=== PATIENT | female | born 1960 | race African-American/Black ===

== ENCOUNTER 2016-11-19 01:54 | Emergency (ER) | payer MEDICARE, OTHER ==
[2016-11-19 02:06] VITALS: BP 151/96
[2016-11-19] MEDS ORDERED: ACETAMINOPHEN 325 MG TABLET PO ONE (02:41)
[2016-11-19] MEDS ORDERED: ONDANSETRON 4 MG TAB.RAPDIS PO ONE (02:41)
--- NOTE | 2016-11-19 02:41 | ER Document Report ---
ED General - General Chief Complaint: Other Stated Complaint: HEADACHE,NAUSEA Time Seen by Provider: 11/19/16 02:37 Notes: Patient is a 56-year-old female comes emergency department for chief complaints of a discomfort in her lower abdomen/pelvis and a sensation that her "uterus is dropping". She states that she has felt this several times and now she has become concerned. She denies dysuria, nausea or vomiting, fever, flank pain, or any other symptoms. TRAVEL OUTSIDE OF THE [place] IN LAST 30 DAYS: No - Related Data Allergies/Adverse Reactions: No Known Allergies Allergy (Verified 12/19/15 21:17) Past Medical History - General Information source: Patient - Social History Smoking Status: Never Smoker Frequency of alcohol use: None Drug Abuse: None Lives with: Alone Family History: Reviewed & Not Pertinent Patient has suicidal ideation: No Patient has homicidal ideation: No - Past Medical History Cardiac Medical History: Reports: Hx Hypertension Renal/ Medical History: Denies: Hx Peritoneal Dialysis Surgical Hx: Negative - Immunizations Hx Diphtheria, Pertussis, Tetanus Vaccination: Yes Review of Systems - Review of Systems Constitutional: No symptoms reported EENT: No symptoms reported Cardiovascular: No symptoms reported Respiratory: No symptoms reported Gastrointestinal: No symptoms reported Genitourinary: No symptoms reported Female Genitourinary: See HPI Musculoskeletal: No symptoms reported Skin: No symptoms reported Hematologic/Lymphatic: No symptoms reported Neurological/Psychological: No symptoms reported Physical Exam - Vital signs Vitals: Temp Pulse Resp BP Pulse Ox 98.1 F 85 16 151/96 H 99 11/19/16 02:05 11/19/16 02:05 11/19/16 02:05 11/19/16 02:05 11/19/16 02:05 Interpretation: Normal - General General appearance: Appears well, Alert In distress: None - HEENT Head: Normocephalic, Atraumatic Eyes: Normal Pupils: PERRL - Respiratory Respiratory status: No respiratory distress Chest status: Nontender Breath sounds: Normal. No: Decreased air movement, Wheezing Chest palpation: Normal - Cardiovascular Rhythm: Regular Heart sounds: Normal auscultation Murmur: No - Abdominal Inspection: Normal Distension: No distension Bowel sounds: Normal Tenderness: Nontender. No: Tender, Guarding Organomegaly: No organomegaly - Back Back: Normal, Nontender - Extremities General upper extremity: Normal inspection, Nontender, Normal color, Normal ROM , Normal temperature General lower extremity: Normal inspection, Nontender, Normal color, Normal ROM , Normal temperature, Normal weight bearing. No: Lula's sign - Neurological Neuro grossly intact: Yes Cognition: Normal Orientation: AAOx4 [place] Coma Scale Eye Opening: Spontaneous [place] Coma Scale Verbal: Oriented Aniyah Coma Scale Motor: Obeys Commands [place] Coma Scale Total: 15 Speech: Normal Motor strength normal: LUE, RUE, LLE, RLE Sensory: Normal - Psychological Associated symptoms: Normal mood. No: Normal affect - Flat affect - Skin Skin Temperature: Warm Skin Moisture: Dry Skin Color: Normal Course - Re-evaluation Re-evalutation: Patient is very eccentric and strange behaving but she is oriented, she answers questions appropriately, and she is not in any distress. Patient refuses a pelvic examination. She is in full agreement with an ultrasound and she really wants this. Abdomen exam is soft and nontender. Vital signs unremarkable. Patient is generally well-appearing. Ultrasound with no acute abnormalities, urinalysis unremarkable. I discussed this with patient, she is actually very relieved, states she follow-up with her primary care provider which she does have, she states she is glad she does not need to follow-up with [facility]. I did discuss return precautions, patient states understanding and agreement. - Vital Signs Vital signs: Temp Pulse Resp BP Pulse Ox 98.1 F 85 16 151/96 H 99 11/19/16 02:05 11/19/16 02:05 11/19/16 02:05 11/19/16 02:05 11/19/16 02:05 - Laboratory Laboratory results interpreted by me: 11/19/16 02:52 Ur Leukocyte Esterase TRACE H Discharge - Discharge Clinical Impression: Abdominal/pelvic symptom Condition: Stable Disposition: HOME, SELF-CARE Additional Instructions: Your urinalysis and ultrasound do not show any abnormalities. Your uterus, bladder, and cervix are normal by ultrasound. Follow up with the primary care referral for additional evaluation and management. Return to the ED for any concerning symptoms- vomiting, fever, pain, or any other concerning symptoms. Referrals: COLIN QUIÑONEZ MD [ACTIVE STAFF] - Follow up as needed
[2016-11-19 03:31] LABS: APPEARANCE,URINE CLEAR; BILIRUBIN,URINE NEGATIVE (NEGATIVE); GLUCOSE, URINE NEGATIVE (NEGATIVE); KETONES,URINE NEGATIVE (NEGATIVE); LEUKOCYTE ESTERASE,URINE TRACE (NEGATIVE); NITRITE,URINE NEGATIVE (NEGATIVE); PROTEIN,URINE NEGATIVE (NEGATIVE); URINE SPECIFIC GRAVITY 1.009; UROBILINOGEN,URINE NEGATIVE mg/dL (<2.0)
--- NOTE | 2016-11-19 05:12 | RADIOLOGY REPORT (SQ) ---
EXAM DESCRIPTION: U/S NON-OB PELVIS LTD W/O DOP CLINICAL HISTORY: 56 years, Female, pelvic pain COMPARISON: None. TECHNIQUE: Transabdominal ultrasound technique. Grayscale technique was utilized to perform this examination. LIMITATIONS: None. FINDINGS: Uterus appears grossly normal and measures 7.4 cm x 3.0 cm in greatest sagittal dimension and 4.0 cm in greatest transverse dimension. Cervix measures 2.9 cm in greatest sagittal dimension. Greatest total sagittal endometrial thickness equals 2.4 mm. Neither ovary is visualized. The fluid-filled urinary bladder appears normal. No free pelvic fluid. IMPRESSION: 1. Uterus and endometrium appear grossly normal. Neither ovary is visualized. 2. Fluid-filled urinary bladder appears normal. 3. No free pelvic fluid. 2011 [employer]- All Rights Reserved
== END 2016-11-19 05:31 | disposition home or self-care (01) ==
LOC: ER 01:54
DX: R10.2 Pelvic and perineal pain (principal); R10.9 Unspecified abdominal pain; R51 Headache; R11.0 Nausea
CPT/HCPCS: 76857; 81001; 99284

== ENCOUNTER 2017-08-24 13:49 | Emergency (ER) | payer MEDICARE, OTHER ==
[2017-08-18] MEDS: BESIFLOXACIN HCL 0.6% OPH SUSP 5 ML BOTTLE OS SCH (11:10)
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
[2017-08-24 15:03] LABS: ABSOLUTE EOSINOPHILS # (AUTO) 0.1 10^3/uL (0.0-0.6); ABSOLUTE LYMPHOCYTES (AUTO) 1.8 10^3/uL (0.5-4.7); ABSOLUTE MONOCYTES (AUTO) 0.7 10^3/uL (0.1-1.4); ABSOLUTE NEUT (AUTO) 3.4 10^3/uL (1.7-8.2); BASOPHILS % (AUTO) 0.6 % (0-2); EOSINOPHILS % (AUTO) 1.5 % (0-6); HEMATOCRIT 37.8 % (36.0-47.0); HEMOGLOBIN 12.8 g/dL (12.0-15.5); LYMPHOCYTES % (AUTO) 29.1 % (13-45); MEAN CORPUSCULAR HEMOGLOBIN 31.7 pg (27.0-33.4); MEAN CORPUSCULAR HGB CONC 33.9 g/dL (32.0-36.0); MEAN CORPUSCULAR VOLUME 93 fl (80-97); MONOCYTES % (AUTO) 11.5 % (3-13); PLATELET COUNT 150 10^3/uL (150-450); RED BLOOD COUNT 4.05 10^6/uL (3.72-5.28); RED CELL DISTRIBUTION WIDTH 13.4 % (11.5-14.0); SEGMENTED NEUTROPHILS % (AUTO) 57.3 % (42-78); TOTAL CELLS COUNTED % (AUTO) 100 %
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
[2017-08-24 15:56] LABS: ALANINE AMINOTRANSFERASE 32 U/L (9-52); ALBUMIN 4.1 g/dL (3.5-5.0); ALKALINE PHOSPHATASE 46 U/L (38-126); ANION GAP 12 (5-19); ASPARTATE AMINO TRANSFERASE 27 U/L (14-36); BILIRUBIN,DIRECT 0.3 mg/dL (0.0-0.4); BILIRUBIN,TOTAL 0.3 mg/dL (0.2-1.3); BLOOD UREA NITROGEN 15 mg/dL (7-20); CALCIUM 9.4 mg/dL (8.4-10.2); CARBON DIOXIDE 29 mmol/L (22-30); CHLORIDE 106 mmol/L (98-107); GLUCOSE 94 mg/dL (75-110); POTASSIUM 3.9 mmol/L (3.6-5.0); SODIUM 147.4 mmol/L (137-145); TOTAL PROTEIN 7.7 g/dL (6.3-8.2)
[2017-08-24 15:59] LABS: ACETAMINOPHEN < 10 ug/mL (10-30); ALCOHOL < 10 mg/dL (NONE DETECTED); SALICYLATE < 1.0 mg/dL (2.0-20.0)
[2017-08-24 16:09] LABS: APPEARANCE,URINE CLEAR; BILIRUBIN,URINE NEGATIVE (NEGATIVE); COLOR,URINE YELLOW; GLUCOSE, URINE NEGATIVE (NEGATIVE); KETONES,URINE NEGATIVE (NEGATIVE); LEUKOCYTE ESTERASE,URINE TRACE (NEGATIVE); NITRITE,URINE NEGATIVE (NEGATIVE); PROTEIN,URINE NEGATIVE (NEGATIVE); URINE SPECIFIC GRAVITY 1.015; UROBILINOGEN,URINE NEGATIVE mg/dL (<2.0)
[2017-08-24 16:25] LABS: URINE AMPHETAMINES SCREEN NEGATIVE; URINE BARBITURATES SCREEN NEGATIVE; URINE BENZODIAZEPINES SCREEN NEGATIVE; URINE COCAINE SCREEN NEGATIVE; URINE MARIJUANA (THC) SCREEN NEGATIVE; URINE METHADONE SCREEN NEGATIVE; URINE PHENCYCLIDINE SCREEN NEGATIVE
[2017-08-24] MEDS ORDERED: CHLORPROMAZINE HCL 50 MG TABLET PO PRN (17:24)
[2017-08-24] MEDS: PREDNISOLONE ACETATE 1% OPH SUSP 5 ML OS SCH (18:42)
[2017-08-24] MEDS: BESIFLOXACIN HCL 0.6% OPH SUSP 5 ML BOTTLE OS SCH (18:43)
[2017-08-24] MEDS ORDERED: BENZTROPINE MESYLATE INJ 2 MG/2 ML AMPULE IM ONE (18:46)
[2017-08-24] MEDS ORDERED: CHLORPROMAZINE HCL INJ 25 MG/1 ML AMPULE IM ONE (18:50)
[2017-08-24] MEDS: BENZTROPINE MESYLATE 1 MG TABLET PO SCH (18:57)
--- NOTE | 2017-08-24 20:41 | EKG REPORT ---
SEVERITY:- NORMAL ECG - SINUS RHYTHM : Confirmed by: Betty Colon MD 24-Aug-2017 20:40:45
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
[2017-08-25] MEDS: BESIFLOXACIN HCL 0.6% OPH SUSP 5 ML BOTTLE OS SCH ×3 (01:35→18:15)
[2017-08-25] MEDS: PREDNISOLONE ACETATE 1% OPH SUSP 5 ML OS SCH ×4 (01:36→18:15)
[2017-08-25] MEDS: ATROPINE SULFATE 1% OPH SOLN 5 ML BOTTLE OS SCH (11:05)
[2017-08-25] MEDS: CHLORPROMAZINE HCL 50 MG TABLET PO SCH (14:45)
--- NOTE | 2017-08-25 16:20 | ER Document Report ---
Doctor's Note Notes: 08/25/17 16:18 The patient was given Thorazine earlier. It was initially ordered as as needed and was never given. It is now been long enough to provide some benefit. She is sitting up eating her lunch/dinner and is quite pleasant. Her left eye is dilated as it should be. She will remain on IVC papers and reevaluated tomorrow after she has had a full day of Thorazine to bring her bipolar type symptoms under control.
[2017-08-25] MEDS: BENZTROPINE MESYLATE 1 MG TABLET PO SCH (18:18)
[2017-08-26] MEDS: BENZTROPINE MESYLATE 1 MG TABLET PO SCH ×2 (06:50→21:00)
[2017-08-26] MEDS: CHLORPROMAZINE HCL 50 MG TABLET PO SCH (06:51)
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
[2017-08-26] MEDS: BESIFLOXACIN HCL 0.6% OPH SUSP 5 ML BOTTLE OS SCH ×4 (10:45→21:53)
[2017-08-26] MEDS: PREDNISOLONE ACETATE 1% OPH SUSP 5 ML OS SCH ×4 (10:46→21:52)
[2017-08-26] MEDS: ATROPINE SULFATE 1% OPH SOLN 5 ML BOTTLE OS SCH (10:47)
[2017-08-26] MEDS ORDERED: HALOPERIDOL 5 MG TABLET PO SCH (12:45)
[2017-08-26] MEDS: HALOPERIDOL 5 MG TABLET PO SCH ×2 (13:27→21:54)
--- NOTE | 2017-08-26 17:32 | ER Document Report ---
Doctor's Note Notes: 08/26/17 17:31 The patient continues to be inappropriate in her responses in that she will look up and then start laughing, but will not engage in conversation. I was told she did not receive her medications last night when she was supposed to. That problem has been rectified today and the patient is receiving all her medications as ordered. Vision changes were recommended by Dr. Chaves to stop the Thorazine, and Haldol 5 mg 3 times daily, and give Haldol Decoanate 100mg IM this evening. She will remain on IVC status and re-evaluated tomorrow.
[2017-08-26] MEDS ORDERED: HALOPERIDOL DECANOATE INJ 100 MG/1 ML VIAL IM ONE (22:00)
[2017-08-27] MEDS: HALOPERIDOL 5 MG TABLET PO SCH ×3 (07:08→21:55)
[2017-08-27] MEDS: BENZTROPINE MESYLATE 1 MG TABLET PO SCH ×2 (08:04→18:47)
[2017-08-27] MEDS: PREDNISOLONE ACETATE 1% OPH SUSP 5 ML OS SCH ×4 (11:41→21:55)
[2017-08-27] MEDS: ATROPINE SULFATE 1% OPH SOLN 5 ML BOTTLE OS SCH (11:41)
[2017-08-27] MEDS: BESIFLOXACIN HCL 0.6% OPH SUSP 5 ML BOTTLE OS SCH ×3 (15:24→21:55)
--- NOTE | 2017-08-27 17:55 | ER Document Report ---
Doctor's Note Notes: 08/27/17 17:54 The patient did have medication changes yesterday. Today she does not appear significantly different to me and talking with her. When asked her how she is feeling today, she looks at me and asks "how much supposed to feel". She was seen by Dr. Chaves this morning, I did not receive any instructions about disposition so I assume she will remain for reevaluation again tomorrow.
[2017-08-28] MEDS: HALOPERIDOL 5 MG TABLET PO SCH ×2 (06:14→14:47)
[2017-08-28] MEDS: BENZTROPINE MESYLATE 1 MG TABLET PO SCH (07:01)
--- NOTE | 2017-08-28 09:59 | ER Document Report ---
Doctor's Note Notes: 08/28/17 09:58 As the rounding physician for our psychiatric patients, I have reviewed the chart, vitals, lab work. Patient has been examined and noted to be stable, patient is sleeping sitting up. I am awaiting mental health in put but expect placement for the patient lab work has been reordered
[2017-08-28 10:01] LABS: ABSOLUTE EOSINOPHILS # (AUTO) 0.1 10^3/uL (0.0-0.6); ABSOLUTE LYMPHOCYTES (AUTO) 1.3 10^3/uL (0.5-4.7); ABSOLUTE MONOCYTES (AUTO) 0.5 10^3/uL (0.1-1.4); ABSOLUTE NEUT (AUTO) 3.3 10^3/uL (1.7-8.2); BASOPHILS % (AUTO) 0.5 % (0-2); EOSINOPHILS % (AUTO) 1.7 % (0-6); HEMATOCRIT 37.8 % (36.0-47.0); HEMOGLOBIN 12.9 g/dL (12.0-15.5); LYMPHOCYTES % (AUTO) 24.8 % (13-45); MEAN CORPUSCULAR HEMOGLOBIN 32.1 pg (27.0-33.4); MEAN CORPUSCULAR HGB CONC 34.1 g/dL (32.0-36.0); MEAN CORPUSCULAR VOLUME 94 fl (80-97); MONOCYTES % (AUTO) 9.8 % (3-13); PLATELET COUNT 160 10^3/uL (150-450); RED BLOOD COUNT 4.02 10^6/uL (3.72-5.28); RED CELL DISTRIBUTION WIDTH 13.4 % (11.5-14.0); SEGMENTED NEUTROPHILS % (AUTO) 63.2 % (42-78); TOTAL CELLS COUNTED % (AUTO) 100 %; WHITE BLOOD COUNT 5.3 10^3/uL (4.0-10.5)
[2017-08-28 10:22] LABS: ALANINE AMINOTRANSFERASE 31 U/L (9-52); ALBUMIN 3.8 g/dL (3.5-5.0); ALKALINE PHOSPHATASE 40 U/L (38-126); ANION GAP 8 (5-19); ASPARTATE AMINO TRANSFERASE 33 U/L (14-36); BILIRUBIN,DIRECT 0.3 mg/dL (0.0-0.4); BILIRUBIN,TOTAL 0.4 mg/dL (0.2-1.3); BLOOD UREA NITROGEN 13 mg/dL (7-20); CALCIUM 9.3 mg/dL (8.4-10.2); CARBON DIOXIDE 28 mmol/L (22-30); CHLORIDE 110 mmol/L (98-107); GLUCOSE 102 mg/dL (75-110); POTASSIUM 4.2 mmol/L (3.6-5.0); SODIUM 146.2 mmol/L (137-145); TOTAL PROTEIN 7.5 g/dL (6.3-8.2)
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
[2017-08-28 14:35] VITALS: BP 149/87
[2017-08-28] MEDS: BESIFLOXACIN HCL 0.6% OPH SUSP 5 ML BOTTLE OS SCH (14:47)
[2017-08-28] MEDS: PREDNISOLONE ACETATE 1% OPH SUSP 5 ML OS SCH (14:47)
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
== END 2017-08-28 15:49 ==
LOC: ER 13:49
DX: F29 Unspecified psychosis not due to a substance or known physiological condition (principal); I10 Essential (primary) hypertension
CPT/HCPCS: 93005; 99285; 96372; 36415; 80307 ×4; 85025; 80053; 81001; 93010; A9270 ×12; J3230; J1631; J3490 ×2